=== PATIENT | male | born 1990 | race African-American/Black ===

== ENCOUNTER 2016-08-25 03:27 | Emergency (ER) | payer SELFPAY ==
[~2016-08-25 03:27] MED LIST: AMOXIL500 M2 PO; IBUPROFEN800 MG PO; ZOFRAN ODT4 MG PO
[2016-08-25] MEDS ORDERED: NO MEDICATIONS (03:36)
== END 2016-08-25 05:21 | disposition home or self-care (01) ==
LOC: SED 03:27
DX: K52.9 Noninfective gastroenteritis and colitis, unspecified (principal); F17.200 Nicotine dependence, unspecified, uncomplicated
CPT/HCPCS: 99283

== ENCOUNTER 2016-11-01 03:30 | Emergency (ER) | payer SELFPAY ==
[~2016-11-01] VITALS: Ht 182.9 cm; Wt 72.6 kg
[~2016-11-01 03:30] MED LIST changes: +NO MEDICATIONS
== END 2016-11-01 04:56 | disposition home or self-care (01) ==
LOC: SED 03:30
DX: K21.9 Gastro-esophageal reflux disease without esophagitis (principal); F17.200 Nicotine dependence, unspecified, uncomplicated
CPT/HCPCS: 99283